=== PATIENT | male | born 1955 | race Asian ===

== ENCOUNTER 2024-07-01 18:09 | Emergency (ER) | payer MEDICARE, SELFPAY ==
[2024-07-01] VITALS (12 sets, daily range): BP systolic 129–175; BP diastolic 66–99; PULSE 61–74; RESP 0–26; TEMP 36.9; O2SAT 97–100; BMI 29.0
--- NOTE | 2024-07-01 19:01 | EKG_ITS ---
[address] [address] Test Date: 2024-07-01 Pat Name: Hany Don Department: Room: Gender: Male Cath Lab: [facility] : 1955 Requested By: Order Number: [id number] Reading MD: Kamron Rader MD Measurements Intervals [place] Rate: 64 P: 40 IN: 196 QRS: 60 QRSD: 96 T: 39 QT: 414 QTc: 427 Interpretive Statements Normal sinus rhythm Electronically Signed On 07-02-2024 7:46:58 PDT by Kamron Rader MD
--- NOTE | 2024-07-01 19:10 | DI.CT.S_ITS ---
PROCEDURE: CT ANGIO HEAD AND NECK INDICATIONS: L HEADACHE, VERTIGO X 12 HRS TECHNIQUE: After the administration of intravenous contrast, 1 mm thick sections acquired from the aortic arch through the [place] of [place]. 3-dimensional nrkknjp-dpkfvpntb-gyjzrwpxle (MIP) and/or volume rendering reformats were acquired of the central intracranial vasculature and neck separately. For radiation dose reduction, the following was used: automated exposure control, adjustment of mA and/or kV according to patient size. COMPARISON: None. FINDINGS: Image quality: Diagnostic. BRAIN: CSF spaces: Ventricles are normal in size and shape. Basal cisterns are patent. No extra-axial fluid collections. Brain: No significant abnormality of the brain can be seen. Skull and face: Calvarium and facial bones appear intact, without suspicious lesions. Orbits appear normal. Sinuses: Sinuses and mastoids are clear. HEAD CT ANGIOGRAPHY: Anterior circulation: Intracranial internal carotid arteries are normal in size and flow. The flow within the paired anterior cerebral arteries is normal and symmetric. The flow within the middle cerebral arteries is normal and symmetric. The anterior communicating artery is seen. No aneurysms are seen. Posterior circulation: Visualized portions of the vertebral arteries demonstrate normal caliber, and join to form a normal appearing basilar artery. Flow within the posterior cerebral arteries is normal and symmetric. No aneurysms are seen. NECK CT ANGIOGRAPHY: Carotid system: The great vessels demonstrate a conventional anatomy as they arise from the aortic arch. The origins of the common carotid arteries appear patent. The common carotid arteries demonstrate normal caliber and courses. The bifurcation regions are both widely patent. The internal carotid arteries demonstrate normal calibers and courses. Posterior circulation: The origins of the vertebral arteries both appear widely patent. The more superior extracranial portions of both vertebral arteries also demonstrate normal courses and calibers. They join to form a normal appearing basilar artery. Soft tissues: Visualized neck soft tissues demonstrate no suspicious abnormalities. Bones: No suspicious bony lesions. Visualized cervical spine appears normally aligned. IMPRESSION: 1. No hemodynamically significant stenosis or aneurysm is seen in the intracranial circulation. 2. No hemodynamically significant stenosis is seen in bilateral neck arteries. Any quantitative measurements of stenosis were performed using NASCET criteria. Dictated by: Mathew Benjamin M.D. on 07/01/2024 at 21:17 Approved by: Mathew Benjamin M.D. on 07/01/2024 at 21:19
--- NOTE | 2024-07-01 19:12 | ED.DIZZY ---
HPI - Dizziness General Chief Complaint: Dizziness Stated Complaint: dizziness, headache and ear px Time Seen by Provider: 07/01/24 18:39 Source: patient Mode of arrival: Wheelchair History of Present Illness HPI Narrative: 69yoM with PMH HTN, HLD presents for room spinning sensation as well as left sided headache. Patient states he woke up at 3:00 a.m. she was restroom and states that he was able to walk normally and had no symptoms. When he woke up several hours later he noticed that the room was spinning, particularly if he bent his head forward. If he lifts his head up the vertigo subsides. Also reporting a pain sensation in the back of his head and neck. Related Data Home Medications Medication Instructions Recorded Confirmed hydrochlorothiazide 12.5 mg tablet 12.5 mg PO DAILY 07/01/24 07/01/24 losartan 25 mg tablet 25 mg PO DAILY 07/01/24 07/01/24 rosuvastatin 20 mg tablet 20 mg PO DAILY 07/01/24 07/01/24 Previous Rx's Medication Instructions Recorded meclizine 25 mg tablet 25 mg PO BID PRN dizziness #30 tabs 07/01/24 Allergies Allergy/AdvReac Type Severity Reaction Status Date / Time No Known Drug Allergies Allergy Verified 07/01/24 18:34 Patient History Social History Smoking Status: Never smoker Smoking Status: Never smoker alcohol intake frequency: other Substance Use Type: does not use Exam Initial Vital Signs Initial Vital Signs: Vital Signs Temperature 98.5 F 07/01/24 18:28 Pulse Rate 71 07/01/24 18:28 Respiratory Rate 17 07/01/24 18:28 Blood Pressure 166/85 H 07/01/24 18:28 Pulse Oximetry 99 07/01/24 18:28 Oxygen Delivery Method Room Air 07/01/24 18:28 Const: Awake, alert, no acute distress, nontoxic appearing HEENT: PERRLA, EOMI, TM normal bilaterally Cardiac: regular rate, regular rhythm RESP: unlabored, clear bilaterally, no wheezing Skin: Warm, Dry, intact, no rashes Neuro: AO x3, CN II-XII grossly intact, moves all extremities, ambulatory without ataxia Course Orders Ordered: Discontinued Medications Sodium Chloride (Normal Saline 0.9%) 1,000 mls @ 1,000 mls/hr IV BOLUS ONE Stop: 07/01/24 20:09 Last Infusion: 07/01/24 21:40 Dose: Infused Documented By: Admin: 07/01/24 19:42 Dose: 1,000 mls/hr Documented By: GIULIA Meclizine HCl (Meclizine Hcl 12.5 Mg Tablet) 50 mg PO NOW ONE Stop: 07/01/24 19:11 Last Admin: 07/01/24 19:41 Dose: 50 mg Documented By: GIULIA Ondansetron HCl (Ondansetron 4 Mg/2 Ml Inj) 4 mg IV NOW ONE Stop: 07/01/24 19:11 Last Admin: 07/01/24 19:41 Dose: 4 mg Documented By: GIULIA Vital Signs Vital signs: Vital Signs - 8 hr 07/01/24 18:28 07/01/24 19:21 07/01/24 19:30 Temperature 98.5 F Pulse Rate 71 69 68 Respiratory Rate 17 23 21 Blood Pressure 166/85 H Pulse Oximetry 99 99 99 Oxygen Delivery Method Room Air Room Air 07/01/24 19:56 07/01/24 19:56 07/01/24 20:00 Temperature Pulse Rate 67 64 Respiratory Rate 20 20 Blood Pressure 175/83 H Pulse Oximetry 99 100 Oxygen Delivery Method Room Air 07/01/24 20:01 07/01/24 20:01 07/01/24 20:43 Temperature Pulse Rate 62 68 Respiratory Rate 17 Blood Pressure 162/79 H Pulse Oximetry 100 98 Oxygen Delivery Method Room Air 07/01/24 21:00 07/01/24 21:06 07/01/24 21:06 Temperature Pulse Rate 61 64 Respiratory Rate 13 16 Blood Pressure 140/76 Pulse Oximetry 98 99 Oxygen Delivery Method 07/01/24 21:30 07/01/24 21:30 07/01/24 21:41 Temperature Pulse Rate 64 Respiratory Rate 14 Blood Pressure 131/66 151/99 H Pulse Oximetry 97 Oxygen Delivery Method 07/01/24 21:41 07/01/24 22:00 07/01/24 22:00 Temperature Pulse Rate 74 63 Respiratory Rate 26 H 0 L Blood Pressure 129/70 Pulse Oximetry 97 98 Oxygen Delivery Method MDM - Dizziness Lab Data 07/01/24 18:30 07/01/24 18:30 Labs: Lab Results 07/01/24 Range/Units 18:30 WBC 8.9 (4.5-11.0) X10^3/uL RBC 4.94 (4.5-5.9) X10^6/uL Hgb 14.2 (13.5-17.5) g/dL Hct 41.4 (41-53) % MCV 83.7 (80-100) fL MCH 28.7 (26-34) PG MCHC 34.2 (30-36) % RDW 13.6 (11.6-14.8) % Plt Count 266 (150-400) X10^3/uL Neut % (Auto) 53.0 (50-75) % Lymph % (Auto) 38.3 (25-40) % Frontier % (Auto) 5.3 (3-14) % Eos % (Auto) 2.8 (2-4) % Baso % (Auto) 0.6 (0-2) % Neut # (Auto) 4700 (0298-0009) /uL Lymph # (Auto) 3400 (5796-3315) /uL Frontier # (Auto) 500 (0-900) /uL Eos # (Auto) 200 (0-450) /uL Baso # (Auto) 100 (0-100) /uL Sodium 133 L (137-145) mmol/L Potassium 3.8 (3.4-5.1) mmol/L Chloride 98 (98-107) mmol/L Carbon Dioxide 29 (22-32) mmol/L BUN 12 (9-20) mg/dL Creatinine 0.88 (0.66-1.25) mg/dL Estimated GFR > 60 (>60) mL/min BUN/Creatinine Ratio 13.6 (6-22) Glucose 117 H (80-110) mg/dL Calcium 9.6 (8.4-10.2) mg/dL Total Bilirubin 0.7 (0.2-1.3) mg/dL AST 25 (17-59) IU/L ALT 22 (<50) IU/L Alkaline Phosphatase 57 (38-126) U/L Total Creatine Kinase 144 (55-170) U/L Troponin I < 0.012 (0.01-0.034) ng/mL Total Protein 7.3 (6.3-8.2) g/dL Albumin 4.4 (3.5-5.0) g/dL Globulin 2.9 (1.7-4.1) g/dL Albumin/Globulin Ratio 1.5 (1.0-2.8) Lipase 43 (23-300) U/L Urine Dip Bedside Urine Glucose Negative Bedside Urine Bilirubin - Negative Bedside Urine Ketone - Negative Urine Specific [place] 1.010 Bedside Urine Occult Blood - Negative Bedside Urine pH 6.0 Bedside Urine Protein - Negative Bedside Urine Urobilinogen - Negative Bedside Urine Nitrite - Negative Bedside Urine Leukocytes - Negative Esterase Imaging Data CT scan - head: Radiologist's Impression: PROCEDURE: CT HEAD/BRAIN WO CON INDICATIONS: L SIDED HEADACHE, VERTIGO X 12 HRS TECHNIQUE: Noncontrast 4.5 mm thick angled axial sections acquired from the foramen magnum to the vertex, with coronal and sagittal reformats. For radiation dose reduction, the following was used: automated exposure control, adjustment of mA and/or kV according to patient size. COMPARISON: None. FINDINGS: Image quality: Diagnostic. CSF spaces: Basal cisterns are patent. No extra-axial fluid collections. The ventricles are symmetric in size and shape. Brain: No intracranial bleeds or masses. Focal hypodensity in right frontal lobe subcortical white matter and likely represent old infarct in this area. There is cerebral volume loss for age, with resultant ventricular and sulcal prominence. There are periventricular and deep white matter chronic small vessel ischemic changes. There is intracranial internal carotid artery atherosclerosis. Skull and face: Calvarium and visualized facial bones appear intact, without suspicious lesions. Sinuses: Visualized sinuses and mastoids are clear. IMPRESSION: No acute intracranial pathology. 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 Dictated by: Mathew Benjamin M.D. on 07/01/2024 at 21:10 Approved by: Mathew Benjamin M.D. on 07/01/2024 at 21:11 CTA - brain/neck: Radiologist's Impression: PROCEDURE: CT ANGIO HEAD AND NECK INDICATIONS: L HEADACHE, VERTIGO X 12 HRS TECHNIQUE: After the administration of intravenous contrast, 1 mm thick sections acquired from the aortic arch through the [place] of [place]. 3-dimensional rormawi-kwtzjtyun-ucpymenuve (MIP) and/or volume rendering reformats were acquired of the central intracranial vasculature and neck separately. For radiation dose reduction, the following was used: automated exposure control, adjustment of mA and/or kV according to patient size. COMPARISON: None. FINDINGS: Image quality: Diagnostic. BRAIN: CSF spaces: Ventricles are normal in size and shape. Basal cisterns are patent. No extra-axial fluid collections. Brain: No significant abnormality of the brain can be seen. Skull and face: Calvarium and facial bones appear intact, without suspicious lesions. Orbits appear normal. Sinuses: Sinuses and mastoids are clear. HEAD CT ANGIOGRAPHY: Anterior circulation: Intracranial internal carotid arteries are normal in size and flow. The flow within the paired anterior cerebral arteries is normal and symmetric. The flow within the middle cerebral arteries is normal and symmetric. The anterior communicating artery is seen. No aneurysms are seen. Posterior circulation: Visualized portions of the vertebral arteries demonstrate normal caliber, and join to form a normal appearing basilar artery. Flow within the posterior cerebral arteries is normal and symmetric. No aneurysms are seen. NECK CT ANGIOGRAPHY: Carotid system: The great vessels demonstrate a conventional anatomy as they arise from the aortic arch. The origins of the common carotid arteries appear patent. The common carotid arteries demonstrate normal caliber and courses. The bifurcation regions are both widely patent. The internal carotid arteries demonstrate normal calibers and courses. Posterior circulation: The origins of the vertebral arteries both appear widely patent. The more superior extracranial portions of both vertebral arteries also demonstrate normal courses and calibers. They join to form a normal appearing basilar artery. Soft tissues: Visualized neck soft tissues demonstrate no suspicious abnormalities. Bones: No suspicious bony lesions. Visualized cervical spine appears normally aligned. IMPRESSION: 1. No hemodynamically significant stenosis or aneurysm is seen in the intracranial circulation. 2. No hemodynamically significant stenosis is seen in bilateral neck arteries. Any quantitative measurements of stenosis were performed using NASCET criteria. Dictated by: Mathew Benjamin M.D. on 07/01/2024 at 21:17 Approved by: Mathew Benjamin M.D. on 07/01/2024 at 21:19 [facility] Narrative Medical decision making narrative: Well-appearing patient with vertigo, particularly with forward positioning of his head. Patient's description of the vertigo indicates a more peripheral etiology, especially with associated left-sided head/ear pain, however patient denies history of vertigo and this is atypical for him. CT brain, CT angio head and neck ordered to assess for other potential causes of vertigo. Meclizine ordered for symptomatic control. Laboratory work is reviewed, no significant abnormalities identified. CT brain and CT angio head and neck reviewed. 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 Patient denies any history of stroke that he was aware of and he denies any symptoms other than his vertigo. Patient reports resolution of vertigo after meclizine administration. He was able to ambulate to and from the restroom without any ataxia or other abnormalities. Patient was informed of all lab and imaging findings. Patient is already on high-intensity statin, and he is originally from [facility]. He states that he is going home in the next several days and can make an appointment with his primary care doctor when he gets home. Patient advised to take a daily baby aspirin until he sees his primary care doctor. He was given a printout copy of his CT reports to take to his next primary care appointment. Meclizine prescription sent to pharmacy of choice. ED return precautions discussed extensively at bedside. Discharge Plan Departure Patient Disposition: Home Clinical Impression: Vertigo Instructions: DI for Vertigo Activity Restrictions/Additional Instructions: Your laboratory work today was normal. The blood vessels in your head in your neck are wide open without any signs of blockages. The CT scan of your head showed what looks like an old small stroke in the right front of your brain. I do not believe that this is related to your vertigo at this time. I would recommend taking a daily baby aspirin and following up with your primary care doctor when you go back home to [place]. You may use the anti vertigo medication as needed for dizziness. Prescriptions: New meclizine 25 mg tablet 25 mg PO BID PRN (Reason: dizziness) Qty: 30 0RF No Action losartan 25 mg Tablet 25 mg PO DAILY rosuvastatin 20 mg Tablet 20 mg PO DAILY hydrochlorothiazide 12.5 mg Tablet 12.5 mg PO DAILY Referrals: Miscellaneous,Doctor, [Primary Care Provider] - Stand Alone Forms: Patient Portal/API, Work Release Note
[2024-07-01] MEDS: ONDANSETRON 4 MG/2 ML INJ IV (19:41)
[2024-07-01] MEDS: MECLIZINE HCL 12.5 MG TABLET 50 MG PO (19:41)
[2024-07-01] MEDS: SODIUM CHLORIDE 0.9% 1,000 ML 1000 ML IV (19:42)
--- NOTE | 2024-07-01 19:45 | PC.NURSE ---
Patient wanted to try to stand up and walk to the restroom. Patient was very slow to stand and became dizzy and needed help sitting down in a wheelchair. Patient states the dizziness gets a lot worse when he is not looking directly straight ahead in front of him. assisted patient to the restroom and back into bed. Call light in reach.
[2024-07-01 19:55] LABS: Add Manual Diff / Slide Review NO; Basophils Absolute Auto 100 /uL (0-100); Basophils Percent Auto 0.6 % (0-2); Eosinophils Absolute Auto 200 /uL (0-450); Eosinophils Percent Auto 2.8 % (2-4); Hematocrit 41.4 % (41-53); Hemoglobin 14.2 g/dL (13.5-17.5); Lymphocytes Absolute Auto 3400 /uL (1100-4500); Lymphocytes Percent Auto 38.3 % (25-40); Mean Corpuscular HGB Conc 34.2 % (30-36); Mean Corpuscular Hemoglobin 28.7 PG (26-34); Mean Corpuscular Volume 83.7 fL (80-100); Monocytes Absolute Auto 500 /uL (0-900); Monocytes Percent Auto 5.3 % (3-14); Neutrophils Absolute Auto 4700 /uL (1500-7000); Platelet Count 266 X10^3/uL (150-400); Red Blood Cell Count 4.94 X10^6/uL (4.5-5.9); Red Cell Distribution Width 13.6 % (11.6-14.8); White Blood Cell Count 8.9 X10^3/uL (4.5-11.0)
[2024-07-01 20:04] LABS: Alanine Aminotransferase 22 IU/L (<50); Albumin 4.4 g/dL (3.5-5.0); Albumin Globulin Ratio 1.5 (1.0-2.8); Alkaline Phosphatase 57 U/L (38-126); Aspartate Aminotransferase 25 IU/L (17-59); BUN Creatinine Ratio 13.6 (6-22); Bilirubin Total 0.7 mg/dL (0.2-1.3); Blood Urea Nitrogen 12 mg/dL (9-20); Calcium 9.6 mg/dL (8.4-10.2); Carbon Dioxide 29 mmol/L (22-32); Chloride 98 mmol/L (98-107); Creatine Kinase 144 U/L (55-170); Estimated Glomerular Filt Rate > 60 mL/min (>60); Globulin 2.9 g/dL (1.7-4.1); Glucose 117 mg/dL (80-110); HEMOLYSIS < 15 (0-50); Lipase 43 U/L (23-300); Potassium 3.8 mmol/L (3.4-5.1); Sodium 133 mmol/L (137-145); Total Protein 7.3 g/dL (6.3-8.2)
[2024-07-01 20:16] LABS: Troponin I < 0.012 ng/mL (0.01-0.034)
== END 2024-07-01 22:44 | disposition home or self-care (01) ==
PROVIDERS: Emergency Provider Emergency Medicine
DX: R42 Dizziness and giddiness (principal); R51.9 Headache, unspecified; I10 Essential (primary) hypertension; M54.2 Cervicalgia
CPT/HCPCS: 36415; 70450; 70496; 70498; 80053; 81003; 82550; 83690; 84484; 85025; 93005; 93010; 96361; 96374; 99284; J2405; Q9967